=== PATIENT | male | born 1965 | race Caucasian/White ===

== ENCOUNTER → 2017-06-13 | Emergency (ER) | payer MEDICARE, MEDICAID ==
[~2017-06-13] VITALS: Ht 165.1 cm; Wt 47.6 kg
[~2017-06-13] MED LIST: DIL50T PO; DOCU100C40 PO; FLUO20CA22 PO; LIDOcaine Viscous 15ml cup PO ONE; LORazepam 1 MG tablet PO ONE; NICO-687 TD; OLANZapine 2.5MG tablet PO SCH; TAMS0.4C32 PO; TRAZ-143 PO; acetaminophen 325mg tablet PO ONE; diphenhydrAMINE 25mg capsule PO ONE; mag hydrox/Alum hydrox/simeth 30ml oral suspension PO ONE; normal saline 1000ML IV soln IVB ONE; normal saline 1000ml 1,000 ML IV ONE; ondansetron 4mg rapidly disintigrating tab PO ONE; ondansetron/PF 4mg/2ml inj IV ONE; proCHLORperazine 10mg tablet PO ONE
[2017-06-13 15:08] LABS: CLARITY,URINE CLOUDY (Clear); COLOR,URINE YELLOW (Yellow); GLUCOSE, URINE NEGATIVE (Neg); KETONES,URINE >=80 mg/dl (Neg); LEUKOCYTE ESTERASE ,URINE NEGATIVE (Neg); NITRITES, URINE NEGATIVE (Neg); OCCULT BLOOD,URINE TRACE-INTACT (Neg); PROTEIN,URINE 30 mg/dl (Neg); UA COLLECTION TYPE CLN CATCH MIDSTREAM; UROBILINOGEN,URINE 0.2 E.U/dL (0.2-1.0)
[2017-06-13 15:18] LABS: BASOPHILS % (AUTO) 0.1 % (0-1); EOSINOPHILS % (AUTO) 0.2 % (0-6); HEMATOCRIT 48.1 % (42.0-52.0); HEMOGLOBIN 16.4 g/dl (14.0-17.9); LYMPHOCYTES % (AUTO) 9.8 % (21-51); MEAN CORPUSCULAR HEMOGLOBIN 30.3 PG (27.0-31.0); MEAN PLATELET VOLUME 8.8 FL (7.4-10.4); MONOCYTES # (AUTO) 0.7 X10'3 (0-0.9); MONOCYTES % (AUTO) 6.8 % (2-12); NEUTROPHILS # (AUTO) 8.3 X10'3 (1.8-7.7); NEUTROPHILS % (AUTO) 83.1 % (42-75); PLATELET COUNT 286 X10'3 (140-440); RED BLOOD COUNT 5.41 X10'6 (4.70-6.10); WHITE BLOOD COUNT 9.9 X10'3 (4.5-11.0)
[2017-06-13 15:28] LABS: URINE AMPHETAMINE SCREEN NEGATIVE (Neg); URINE BARBITUATE SCREEN NEGATIVE (Neg); URINE BENZODIAZEPINES SCREEN NEGATIVE (Neg); URINE CANNABINOID SCREEN POSITIVE (Neg); URINE COCAINE SCREEN NEGATIVE (Neg); URINE METHADONE SCREEN NEGATIVE (Neg); URINE OPIATE SCREEN NEGATIVE (Neg); URINE PHENCYCLIDINE SCREEN NEGATIVE (Neg)
[2017-06-13 15:31] LABS: HYALINE CASTS >30 /LPF (NEGATIVE); SQUAMOUS EPITHELIAL CELL,UR FEW /LPF (FEW)
[2017-06-13 15:32] LABS: BACTERIA,URINE FEW /HPF (Neg); MUCUS STRANDS MANY /LPF (Neg); RBC,URINE 0-2 /HPF (0-2); TRANSITIONAL EPI CELLS,URINE FEW /HPF; WBC,URINE 0-4 /HPF (0-4)
[2017-06-13 15:42] LABS: ALANINE AMINOTRANSFERASE 25 U/L (12-78); ALBUMIN 4.3 G/DL (3.4-5.0); ALBUMIN/GLOBULIN RATIO 1.1 (1.1-1.5); ALKALINE PHOSPHATASE 80 IU/L (46-116); ANION GAP 15 (8-16); ASPARTATE AMINO TRANSFERASE 26 U/L (10-37); BILIRUBIN,TOTAL 0.7 MG/DL (0.1-1.0); BLOOD UREA NITROGEN 20 MG/DL (7-18); CALCIUM 9.7 MG/DL (8.5-10.1); CHLORIDE 97 MMOL/L (99-107); CREATININE 0.87 MG/DL (0.60-1.10); ETHANOL < 0.010 GM/DL (0.0-0.010); GLUCOSE 114 MG/DL (70-104); POTASSIUM 4.2 MMOL/L (3.5-5.1); SODIUM 139 MMOL/L (135-145); TOTAL CARBON DIOXIDE 26.6 MMOL/L (24-32); TOTAL PROTEIN 8.2 G/DL (6.4-8.2); eGFR > 90 ML/MIN
[2017-06-13] MEDS: LORazepam 1 MG tablet PO PRN (20:12)
[2017-06-13] MEDS: olanzapine 10mg tablet PO SCH ×2 (20:16→20:17)
[2017-06-13] MEDS: normal saline 1000ml 1,000 ML IVB SCH (23:27)
[2017-06-14] MEDS: normal saline 1000ml 1,000 ML IVB SCH ×3 (00:52→02:25)
[2017-06-14] MEDS: LORazepam 1 MG tablet PO PRN (17:39)
[2017-06-14] MEDS: olanzapine 10mg tablet PO SCH (21:33)
[2017-06-15] MEDS: acetaminophen 325mg tablet PO PRN ×2 (09:04→18:41)
[2017-06-15] MEDS: LORazepam 1 MG tablet PO PRN (18:41)
[2017-06-15] MEDS: olanzapine 10mg tablet PO SCH (20:45)
[2017-06-16] MEDS: LORazepam 1 MG tablet PO PRN (07:37)
[2017-06-16] MEDS: acetaminophen 325mg tablet PO PRN (07:38)
[2017-06-16 17:33] VITALS: BP 120/67
== END ==
LOC: ER 14:09
DX: F32.9 Major depressive disorder, single episode, unspecified (principal); F41.9 Anxiety disorder, unspecified; R45.851 Suicidal ideations; F17.200 Nicotine dependence, unspecified, uncomplicated; F12.10 Cannabis abuse, uncomplicated; Z88.0 Allergy status to penicillin; Z79.899 Other long term (current) drug therapy
CPT/HCPCS: 36415; 80053; 80305; 80320; 81001; 84443; 85025; 93005; 99285; J2405; J3490; J7030; Q0164

== ENCOUNTER 2017-06-16 17:30 | Inpatient (IN) | payer MEDICARE, MEDICAID ==
[~2017-06-16] VITALS: Ht 165.1 cm; Wt 52.2 kg
[~2017-06-16 17:30] MED LIST changes: -LIDOcaine Viscous 15ml cup PO ONE; -LORazepam 1 MG tablet PO ONE; -OLANZapine 2.5MG tablet PO SCH; -acetaminophen 325mg tablet PO ONE; -diphenhydrAMINE 25mg capsule PO ONE; -mag hydrox/Alum hydrox/simeth 30ml oral suspension PO ONE; -normal saline 1000ML IV soln IVB ONE; -normal saline 1000ml 1,000 ML IV ONE; -ondansetron 4mg rapidly disintigrating tab PO ONE; -ondansetron/PF 4mg/2ml inj IV ONE; -proCHLORperazine 10mg tablet PO ONE
[2017-06-16 20:43] VITALS: BP 135/84
[2017-06-16] MEDS ORDERED: acetaminophen 325mg tablet PO PRN (21:10)
[2017-06-16] MEDS ORDERED: traZODone 50mg tablet PO ONE (21:40)
[2017-06-16] MEDS ORDERED: phenytoin 50mg chewable tablet PO ONE (21:40)
[2017-06-17 07:08] VITALS: BP 119/83
[2017-06-17] MEDS: phenytoin 50mg chewable tablet PO SCH ×3 (07:43→20:11)
[2017-06-17] MEDS ORDERED: tamsulosin 0.4mg capsule PO SCH (08:00)
[2017-06-17] MEDS: nicotine 21mg patch - 24 hr TD SCH (08:20)
[2017-06-17] MEDS: FLUoxetine 20mg capsule PO SCH (08:20)
[2017-06-17] MEDS ORDERED: pantoprazole 40mg Tablet.DR PO ONE (08:55)
[2017-06-17] MEDS: acetaminophen 325mg tablet PO PRN (12:05)
[2017-06-17 19:01] VITALS: BP 137/89
[2017-06-17] MEDS: gabapentin 300mg capsule PO SCH (20:10)
[2017-06-17] MEDS: traZODone 50mg tablet PO SCH (20:12)
[2017-06-17] MEDS ORDERED: OLANZapine 2.5MG tablet PO SCH (21:00)
[2017-06-18] MEDS: phenytoin 50mg chewable tablet PO SCH ×3 (07:17→20:52)
[2017-06-18] MEDS: pantoprazole 40mg Tablet.DR PO SCH (07:50)
[2017-06-18] MEDS: FLUoxetine 20mg capsule PO SCH (07:50)
[2017-06-18] MEDS: gabapentin 300mg capsule PO SCH ×3 (07:50→20:52)
[2017-06-18 08:00] VITALS: BP 117/78
[2017-06-18] MEDS: nicotine 21mg patch - 24 hr TD SCH (11:47)
[2017-06-18] MEDS ORDERED: docusate sod 100mg capsule PO PRN (16:45)
[2017-06-18 19:21] LABS: BASOPHILS % (AUTO) 0.5 % (0-1); EOSINOPHILS # (AUTO) 0.5 X10'3 (0-0.9); EOSINOPHILS % (AUTO) 6.2 % (0-6); HEMATOCRIT 43.5 % (42.0-52.0); HEMOGLOBIN 14.9 g/dl (14.0-17.9); LYMPHOCYTES # (AUTO) 2.2 X10'3 (1.1-4.8); MEAN CORPUSCULAR HEMOGLOBIN 30.5 PG (27.0-31.0); MEAN CORPUSCULAR HGB CONC 34.2 % (33.0-36.5); MEAN CORPUSCULAR VOLUME 89.2 FL (78-98); MEAN PLATELET VOLUME 8.7 FL (7.4-10.4); MONOCYTES # (AUTO) 0.6 X10'3 (0-0.9); MONOCYTES % (AUTO) 6.9 % (2-12); NEUTROPHILS # (AUTO) 4.8 X10'3 (1.8-7.7); NEUTROPHILS % (AUTO) 59.4 % (42-75); PLATELET COUNT 304 X10'3 (140-440); RED BLOOD COUNT 4.87 X10'6 (4.70-6.10); WHITE BLOOD COUNT 8.1 X10'3 (4.5-11.0)
[2017-06-18 19:28] LABS: ALANINE AMINOTRANSFERASE 21 U/L (12-78); ALBUMIN 3.6 G/DL (3.4-5.0); ALKALINE PHOSPHATASE 60 IU/L (46-116); ANION GAP 10 (8-16); ASPARTATE AMINO TRANSFERASE 16 U/L (10-37); BILIRUBIN,TOTAL 0.2 MG/DL (0.1-1.0); BLOOD UREA NITROGEN 16 MG/DL (7-18); BUN/CREATININE RATIO 19.3 (5.4-32.0); CALCIUM 9.5 MG/DL (8.5-10.1); CHLORIDE 102 MMOL/L (99-107); CREATININE 0.83 MG/DL (0.60-1.10); GLUCOSE 131 MG/DL (70-104); POTASSIUM 4.6 MMOL/L (3.5-5.1); SODIUM 139 MMOL/L (135-145); TOTAL CARBON DIOXIDE 27.4 MMOL/L (24-32); TOTAL PROTEIN 7.2 G/DL (6.4-8.2); eGFR > 90 ML/MIN
[2017-06-18 19:36] VITALS: BP 163/90
[2017-06-18] MEDS: traZODone 50mg tablet PO SCH (20:53)
[2017-06-18] MEDS ORDERED: OLANZapine 2.5MG tablet PO SCH (21:00)
[2017-06-19] MEDS: phenytoin 50mg chewable tablet PO SCH ×4 (07:00→20:20)
[2017-06-19] MEDS: pantoprazole 40mg Tablet.DR PO SCH (07:30)
[2017-06-19 08:00] VITALS: BP 128/80
[2017-06-19] MEDS: gabapentin 300mg capsule PO SCH ×3 (08:00→20:20)
[2017-06-19] MEDS: nicotine 21mg patch - 24 hr TD SCH (08:00)
[2017-06-19] MEDS: FLUoxetine 20mg capsule PO SCH (08:00)
[2017-06-19] MEDS: mag hydrox/Alum hydrox/simeth 30ml oral suspension PO PRN (16:56)
[2017-06-19 19:26] VITALS: BP 124/87
[2017-06-19] MEDS ORDERED: traZODone 50mg tablet PO SCH (20:00)
[2017-06-19] MEDS: OLANZapine 2.5MG tablet PO SCH (20:16)
[2017-06-20] MEDS: pantoprazole 40mg Tablet.DR PO SCH (07:18)
[2017-06-20] MEDS: phenytoin 50mg chewable tablet PO SCH ×3 (07:19→20:41)
[2017-06-20] MEDS ORDERED: PALIPERIDONE 3 MG TAB.ER.24 PO SCH (08:00)
[2017-06-20] MEDS: FLUoxetine 20mg capsule PO SCH (08:12)
[2017-06-20] MEDS: gabapentin 300mg capsule PO SCH ×3 (08:12→20:41)
[2017-06-20] MEDS: nicotine 21mg patch - 24 hr TD SCH (08:13)
[2017-06-20 08:14] VITALS: BP 112/77
[2017-06-20 19:31] VITALS: BP 132/82
[2017-06-20] MEDS: OLANZapine 2.5MG tablet PO SCH (20:41)
[2017-06-20] MEDS: traZODone 50mg tablet PO SCH (20:41)
[2017-06-21] MEDS: pantoprazole 40mg Tablet.DR PO SCH (07:17)
[2017-06-21] MEDS: phenytoin 50mg chewable tablet PO SCH ×3 (07:29→20:29)
[2017-06-21] MEDS ORDERED: PALIPERIDONE 3 MG TAB.ER.24 PO SCH (08:00)
[2017-06-21] MEDS: gabapentin 300mg capsule PO SCH ×3 (08:10→20:29)
[2017-06-21] MEDS: FLUoxetine 20mg capsule PO SCH (08:11)
[2017-06-21] MEDS: nicotine 21mg patch - 24 hr TD SCH (08:11)
[2017-06-21 08:57] VITALS: BP 109/79
[2017-06-21] MEDS: acetaminophen 325mg tablet PO PRN (12:32)
[2017-06-21] MEDS: magnesium hydroxide 30ml (MOM) UD suspension PO PRN (14:21)
[2017-06-21 20:00] VITALS: BP 116/79
[2017-06-21] MEDS: OLANZapine 2.5MG tablet PO SCH (20:29)
[2017-06-21] MEDS: traZODone 50mg tablet PO SCH (20:29)
[2017-06-22] MEDS: phenytoin 50mg chewable tablet PO SCH ×3 (07:08→20:42)
[2017-06-22] MEDS: pantoprazole 40mg Tablet.DR PO SCH (07:41)
[2017-06-22] MEDS: FLUoxetine 20mg capsule PO SCH (07:42)
[2017-06-22] MEDS: gabapentin 300mg capsule PO SCH ×3 (07:42→20:42)
[2017-06-22] MEDS: PALIPERIDONE 3 MG TAB.ER.24 PO SCH (07:42)
[2017-06-22] MEDS: nicotine 21mg patch - 24 hr TD SCH (07:49)
[2017-06-22 07:50] VITALS: BP 125/89
[2017-06-22] MEDS: acetaminophen 325mg tablet PO PRN (17:51)
[2017-06-22 19:00] VITALS: BP 123/88
[2017-06-22] MEDS: magnesium hydroxide 30ml (MOM) UD suspension PO PRN (20:41)
[2017-06-22] MEDS: OLANZapine 2.5MG tablet PO SCH (20:42)
[2017-06-22] MEDS: traZODone 50mg tablet PO SCH (20:42)
[2017-06-23 08:00] VITALS: BP 128/79
[2017-06-23] MEDS: phenytoin 50mg chewable tablet PO SCH ×3 (08:03→20:50)
[2017-06-23] MEDS: gabapentin 300mg capsule PO SCH ×3 (08:26→20:49)
[2017-06-23] MEDS: pantoprazole 40mg Tablet.DR PO SCH (08:26)
[2017-06-23] MEDS: FLUoxetine 20mg capsule PO SCH (08:27)
[2017-06-23] MEDS: PALIPERIDONE 3 MG TAB.ER.24 PO SCH (08:27)
[2017-06-23] MEDS: nicotine 21mg patch - 24 hr TD SCH (08:30)
[2017-06-23] MEDS: acetaminophen 325mg tablet PO PRN (11:10)
[2017-06-23] MEDS: magnesium hydroxide 30ml (MOM) UD suspension PO PRN (11:49)
[2017-06-23 19:17] VITALS: BP 123/86
[2017-06-23] MEDS: benztropine 1mg tablet PO SCH (20:49)
[2017-06-23] MEDS: traZODone 50mg tablet PO SCH (20:49)
[2017-06-24] MEDS: phenytoin 50mg chewable tablet PO SCH ×3 (07:52→20:13)
[2017-06-24] MEDS: benztropine 1mg tablet PO SCH ×2 (07:53→20:14)
[2017-06-24] MEDS: gabapentin 300mg capsule PO SCH ×3 (07:53→20:13)
[2017-06-24] MEDS: FLUoxetine 20mg capsule PO SCH (07:53)
[2017-06-24] MEDS: PALIPERIDONE 3 MG TAB.ER.24 PO SCH (07:53)
[2017-06-24] MEDS: pantoprazole 40mg Tablet.DR PO SCH (07:53)
[2017-06-24] MEDS: nicotine 21mg patch - 24 hr TD SCH (07:54)
[2017-06-24 08:00] VITALS: BP 104/66
[2017-06-24] MEDS ORDERED: paliperidone palmitate inj 234 MG/1.5 ML SYRINGE IM ONE (08:00)
[2017-06-24] MEDS: mag hydrox/Alum hydrox/simeth 30ml oral suspension PO PRN (09:17)
[2017-06-24] MEDS ORDERED: bisacodyl 5mg tablet.DR PO PRN (11:05)
[2017-06-24 19:01] VITALS: BP_SYST 123; BP_SYST 126; BP_DIAS 79; BP_DIAS 86
[2017-06-24] MEDS: magnesium hydroxide 30ml (MOM) UD suspension PO PRN (20:10)
[2017-06-24] MEDS: docusate sod 100mg capsule PO SCH (20:13)
[2017-06-24] MEDS: mirtazapine 15mg tablet PO SCH (20:14)
[2017-06-25] MEDS: pantoprazole 40mg Tablet.DR PO SCH (07:36)
[2017-06-25] MEDS: phenytoin 50mg chewable tablet PO SCH ×3 (07:36→20:14)
[2017-06-25 08:00] VITALS: BP 112/85
[2017-06-25] MEDS: docusate sod 100mg capsule PO SCH ×2 (08:14→20:15)
[2017-06-25] MEDS: nicotine 21mg patch - 24 hr TD SCH (08:14)
[2017-06-25] MEDS: PALIPERIDONE 3 MG TAB.ER.24 PO SCH (08:14)
[2017-06-25] MEDS: FLUoxetine 20mg capsule PO SCH (08:14)
[2017-06-25] MEDS: gabapentin 300mg capsule PO SCH ×3 (08:14→20:15)
[2017-06-25] MEDS: benztropine 1mg tablet PO SCH ×2 (08:14→20:15)
[2017-06-25] MEDS: acetaminophen 325mg tablet PO PRN (19:44)
[2017-06-25 20:00] VITALS: BP 145/85
[2017-06-25] MEDS: psyllium seed 3.4 gm packet PO SCH (20:14)
[2017-06-25] MEDS: mirtazapine 15mg tablet PO SCH (20:15)
[2017-06-26] MEDS: pantoprazole 40mg Tablet.DR PO SCH (07:21)
[2017-06-26] MEDS: phenytoin 50mg chewable tablet PO SCH ×3 (07:21→20:17)
[2017-06-26 08:00] VITALS: BP 133/73
[2017-06-26] MEDS: PALIPERIDONE 3 MG TAB.ER.24 PO SCH (08:07)
[2017-06-26] MEDS: gabapentin 300mg capsule PO SCH ×3 (08:07→20:17)
[2017-06-26] MEDS: FLUoxetine 20mg capsule PO SCH (08:07)
[2017-06-26] MEDS: benztropine 1mg tablet PO SCH ×2 (08:07→20:16)
[2017-06-26] MEDS: docusate sod 100mg capsule PO SCH ×2 (08:08→20:16)
[2017-06-26] MEDS: nicotine 21mg patch - 24 hr TD SCH (08:09)
[2017-06-26] MEDS ORDERED: simethicone 125mg capsule PO PRN (09:05)
[2017-06-26] MEDS: acetaminophen 325mg tablet PO PRN (16:19)
[2017-06-26] MEDS: psyllium seed 3.4 gm packet PO SCH (20:16)
[2017-06-26] MEDS: mirtazapine 15mg tablet PO SCH (20:16)
[2017-06-26 20:21] VITALS: BP 117/80
[2017-06-27] MEDS: pantoprazole 40mg Tablet.DR PO SCH (07:19)
[2017-06-27] MEDS: phenytoin 50mg chewable tablet PO SCH ×3 (07:19→20:32)
[2017-06-27 07:58] VITALS: BP 119/77
[2017-06-27] MEDS: gabapentin 300mg capsule PO SCH ×3 (08:30→20:32)
[2017-06-27] MEDS: FLUoxetine 20mg capsule PO SCH (08:30)
[2017-06-27] MEDS: benztropine 1mg tablet PO SCH ×2 (08:30→20:32)
[2017-06-27] MEDS: PALIPERIDONE 3 MG TAB.ER.24 PO SCH (08:30)
[2017-06-27] MEDS: docusate sod 100mg capsule PO SCH ×2 (08:30→20:32)
[2017-06-27] MEDS: nicotine 21mg patch - 24 hr TD SCH (08:31)
[2017-06-27] MEDS: acetaminophen 325mg tablet PO PRN ×2 (11:18→17:00)
[2017-06-27 19:28] VITALS: BP 131/86
[2017-06-27] MEDS: mirtazapine 15mg tablet PO SCH (20:32)
[2017-06-27] MEDS: psyllium seed 3.4 gm packet PO SCH (20:32)
[2017-06-28] MEDS: benztropine 1mg tablet PO SCH (07:42)
[2017-06-28] MEDS: phenytoin 50mg chewable tablet PO SCH ×3 (07:42→20:10)
[2017-06-28] MEDS: gabapentin 300mg capsule PO SCH ×3 (07:43→20:10)
[2017-06-28] MEDS: docusate sod 100mg capsule PO SCH ×2 (07:43→20:10)
[2017-06-28] MEDS: PALIPERIDONE 3 MG TAB.ER.24 PO SCH (07:43)
[2017-06-28] MEDS: pantoprazole 40mg Tablet.DR PO SCH (07:44)
[2017-06-28] MEDS: FLUoxetine 20mg capsule PO SCH (07:44)
[2017-06-28] MEDS: nicotine 21mg patch - 24 hr TD SCH (07:48)
[2017-06-28 08:23] VITALS: BP 125/81
[2017-06-28] MEDS: acetaminophen 325mg tablet PO PRN (12:55)
[2017-06-28 19:16] VITALS: BP 137/86
[2017-06-28] MEDS: mirtazapine 15mg tablet PO SCH (20:10)
[2017-06-28] MEDS: psyllium seed 3.4 gm packet PO SCH (20:10)
[2017-06-29] MEDS: phenytoin 50mg chewable tablet PO SCH ×3 (07:32→20:10)
[2017-06-29] MEDS: pantoprazole 40mg Tablet.DR PO SCH (07:32)
[2017-06-29 08:00] VITALS: BP 119/80
[2017-06-29] MEDS ORDERED: paliperidone palmitate 156 mg/ml inj.**IM only IM ONE (08:00)
[2017-06-29] MEDS: gabapentin 300mg capsule PO SCH ×3 (08:27→20:09)
[2017-06-29] MEDS: PALIPERIDONE 3 MG TAB.ER.24 PO SCH (08:27)
[2017-06-29] MEDS: docusate sod 100mg capsule PO SCH ×2 (08:28→20:09)
[2017-06-29] MEDS: FLUoxetine 20mg capsule PO SCH (08:28)
[2017-06-29] MEDS: nicotine 21mg patch - 24 hr TD SCH (09:49)
[2017-06-29] MEDS: acetaminophen 325mg tablet PO PRN (11:29)
[2017-06-29] MEDS: magnesium hydroxide 30ml (MOM) UD suspension PO PRN (12:42)
[2017-06-29 19:11] VITALS: BP 129/86
[2017-06-29] MEDS: psyllium seed 3.4 gm packet PO SCH (20:09)
[2017-06-29] MEDS: mirtazapine 15mg tablet PO SCH (20:09)
[2017-06-29] MEDS: hydrOXYzine 25 MG tablet PO PRN (20:10)
[2017-06-30] MEDS: phenytoin 50mg chewable tablet PO SCH ×3 (07:05→21:46)
[2017-06-30] MEDS: pantoprazole 40mg Tablet.DR PO SCH (07:07)
[2017-06-30] MEDS: acetaminophen 325mg tablet PO PRN ×2 (07:07→17:15)
[2017-06-30] MEDS: gabapentin 300mg capsule PO SCH ×4 (08:15→22:17)
[2017-06-30] MEDS: FLUoxetine 20mg capsule PO SCH (08:16)
[2017-06-30] MEDS: docusate sod 100mg capsule PO SCH ×2 (08:16→21:46)
[2017-06-30] MEDS: PALIPERIDONE 3 MG TAB.ER.24 PO SCH (08:16)
[2017-06-30] MEDS: nicotine 21mg patch - 24 hr TD SCH (08:18)
[2017-06-30 08:37] VITALS: BP 113/75
[2017-06-30] MEDS: hydrOXYzine 25 MG tablet PO PRN (17:14)
[2017-06-30 19:07] VITALS: BP 117/79
[2017-06-30] MEDS: mirtazapine 15mg tablet PO SCH (21:45)
[2017-06-30] MEDS: psyllium seed 3.4 gm packet PO SCH (21:47)
[2017-07-01] MEDS: pantoprazole 40mg Tablet.DR PO SCH (07:32)
[2017-07-01] MEDS: phenytoin 50mg chewable tablet PO SCH ×3 (07:32→21:05)
[2017-07-01] MEDS: acetaminophen 325mg tablet PO PRN (07:55)
[2017-07-01 08:00] VITALS: BP 116/71
[2017-07-01] MEDS ORDERED: gabapentin 300mg capsule PO ONE (08:15)
[2017-07-01] MEDS: PALIPERIDONE 3 MG TAB.ER.24 PO SCH (08:51)
[2017-07-01] MEDS: FLUoxetine 20mg capsule PO SCH (08:51)
[2017-07-01] MEDS: docusate sod 100mg capsule PO SCH ×2 (08:51→21:07)
[2017-07-01] MEDS: nicotine 21mg patch - 24 hr TD SCH (08:52)
[2017-07-01] MEDS: gabapentin 300mg capsule PO SCH ×2 (13:25→21:10)
[2017-07-01 19:13] VITALS: BP 131/80
[2017-07-01] MEDS: mirtazapine 15mg tablet PO SCH ×2 (21:00→21:06)
[2017-07-01] MEDS ORDERED: polyethylene glycol 3350 17gm powd pack PO SCH (21:00)
[2017-07-01] MEDS: psyllium seed 3.4 gm packet PO SCH (21:06)
[2017-07-02] MEDS: pantoprazole 40mg Tablet.DR PO SCH (07:35)
[2017-07-02] MEDS: phenytoin 50mg chewable tablet PO SCH ×2 (07:35→11:59)
[2017-07-02] MEDS: gabapentin 300mg capsule PO SCH ×2 (07:54→13:01)
[2017-07-02] MEDS: FLUoxetine 20mg capsule PO SCH (07:54)
[2017-07-02] MEDS: docusate sod 100mg capsule PO SCH (07:54)
[2017-07-02] MEDS: nicotine 21mg patch - 24 hr TD SCH (07:55)
[2017-07-02 08:00] VITALS: BP 108/71
[2017-07-02] MEDS: acetaminophen 325mg tablet PO PRN (12:05)
[2017-07-02] MEDS ORDERED: HYDR-3686 PO (12:56)
[2017-07-02] MEDS ORDERED: FLUO20CA22 PO (12:56)
[2017-07-02] MEDS ORDERED: PALI117D IM (12:56)
[2017-07-02] MEDS ORDERED: NICO-731 TOP (12:56)
[2017-07-02] MEDS ORDERED: TAMS0.4C32 PO (12:56)
[2017-07-02] MEDS ORDERED: MIRT15TA8 PO (12:56)
[2017-07-02] MEDS ORDERED: COL100C PO (12:56)
[2017-07-02] MEDS ORDERED: DIL50T PO (12:56)
[2017-07-02] MEDS ORDERED: GABA300C PO (12:56)
[2017-07-02] MEDS ORDERED: PANT40TA4 PO (12:56)
== END 2017-07-02 15:00 | disposition home or self-care (01) | DRG 885 ==
LOC: ADULT MH 17:30
PROVIDERS: ADMIT Psychiatry & Neurology Psychiatry; ATTEND Hospitalist
DX: F31.64 Bipolar disorder, current episode mixed, severe, with psychotic features (principal); R45.851 Suicidal ideations; G40.909 Epilepsy, unspecified, not intractable, without status epilepticus; F17.210 Nicotine dependence, cigarettes, uncomplicated; F41.9 Anxiety disorder, unspecified; K59.00 Constipation, unspecified; R32 Unspecified urinary incontinence; G47.00 Insomnia, unspecified; N40.0 Benign prostatic hyperplasia without lower urinary tract symptoms; G24.9 Dystonia, unspecified; Z82.49 Family history of ischemic heart disease and other diseases of the circulatory system; Z82.41 Family history of sudden cardiac death; Z82.3 Family history of stroke; Z83.3 Family history of diabetes mellitus; Z82.5 Family history of asthma and other chronic lower respiratory diseases; Z79.899 Other long term (current) drug therapy; Z88.0 Allergy status to penicillin; Z90.49 Acquired absence of other specified parts of digestive tract
CPT/HCPCS: 12001; 36415; 76700; 80053; 80185; 85025; 87070; 96372; 96374; 99285; A6213; Q0177

== ENCOUNTER 2017-09-16 04:29 | Emergency (ER) | payer MEDICARE, MEDICAID ==
[~2017-09-16] VITALS: Ht 165.1 cm; Wt 49.8 kg
[~2017-09-16 04:29] MED LIST changes: -DOCU100C40 PO; -FLUO20CA22 PO; -NICO-687 TD; +NICO-731 TOP; -TAMS0.4C32 PO; -TRAZ-143 PO
[2017-09-16 04:35] VITALS: BP 152/101
[2017-09-16] MEDS ORDERED: CEPH-572 PO (05:46)
[2017-09-16] MEDS ORDERED: bacitracin 15gm ointment TP ONE (05:50)
== END 2017-09-16 05:56 | disposition home or self-care (01) ==
LOC: ER 04:30
DX: S06.0X0A Concussion without loss of consciousness, initial encounter (principal); S01.21XA Laceration without foreign body of nose, initial encounter; S80.212A Abrasion, left knee, initial encounter; F17.200 Nicotine dependence, unspecified, uncomplicated; F12.90 Cannabis use, unspecified, uncomplicated; Z88.0 Allergy status to penicillin; Z79.899 Other long term (current) drug therapy; W01.0XXA Fall on same level from slipping, tripping and stumbling without subsequent striking against object, initial encounter; Y93.89 Activity, other specified; Y92.89 Other specified places as the place of occurrence of the external cause; Y99.8 Other external cause status
CPT/HCPCS: 12013; 99284

== ENCOUNTER 2018-06-06 11:49 | Emergency (ER) | payer MEDICARE, MEDICAID ==
[~2018-06-06] VITALS: Ht 165.1 cm; Wt 53.0 kg
[2018-06-06 12:13] LABS: BASOPHILS # (AUTO) 0.1 X10'3 (0-0.2); BASOPHILS % (AUTO) 0.8 % (0-1); EOSINOPHILS # (AUTO) 0.5 X10'3 (0-0.9); EOSINOPHILS % (AUTO) 5.5 % (0-6); HEMOGLOBIN 14.6 g/dl (14.0-17.9); LYMPHOCYTES # (AUTO) 1.8 X10'3 (1.1-4.8); LYMPHOCYTES % (AUTO) 21.3 % (21-51); MEAN CORPUSCULAR HEMOGLOBIN 29.9 PG (27.0-31.0); MEAN CORPUSCULAR HGB CONC 33.1 g/dL (33.0-36.5); MEAN CORPUSCULAR VOLUME 90.4 FL (78-98); MEAN PLATELET VOLUME 7.8 FL (7.4-10.4); MONOCYTES # (AUTO) 0.7 X10'3 (0-0.9); MONOCYTES % (AUTO) 8.8 % (2-12); NEUTROPHILS # (AUTO) 5.4 X10'3 (1.8-7.7); NEUTROPHILS % (AUTO) 63.6 % (42-75); PLATELET COUNT 277 X10'3 (140-440); RED BLOOD COUNT 4.87 X10'6 (4.70-6.10); RED CELL DISTRIBUTION WIDTH 13.9 % (11.5-14.5); WHITE BLOOD COUNT 8.5 X10'3 (4.5-11.0)
[2018-06-06 12:29] LABS: ALANINE AMINOTRANSFERASE 18 U/L (12-78); ALBUMIN 3.6 G/DL (3.4-5.0); ALBUMIN/GLOBULIN RATIO 1.1 (1.1-1.5); ALKALINE PHOSPHATASE 69 IU/L (46-116); ANION GAP 7 (8-16); ASPARTATE AMINO TRANSFERASE 16 U/L (10-37); BILIRUBIN,TOTAL 0.2 MG/DL (0.1-1.0); BLOOD UREA NITROGEN 9 MG/DL (7-18); BUN/CREATININE RATIO 12.7 (5.4-32.0); CALCIUM 9.2 MG/DL (8.5-10.1); CHLORIDE 102 MMOL/L (99-107); CREATININE 0.71 MG/DL (0.60-1.10); GLUCOSE 79 MG/DL (70-104); POTASSIUM 4.5 MMOL/L (3.5-5.1); SODIUM 139 MMOL/L (135-145); TOTAL PROTEIN 6.8 G/DL (6.4-8.2); eGFR > 90 ML/MIN
[2018-06-06 12:37] LABS: MAGNESIUM 1.9 MG/DL (1.5-2.4)
[2018-06-06 13:24] VITALS: BP 143/78
== END 2018-06-06 13:26 | disposition home or self-care (01) ==
LOC: ER 11:49
DX: M54.2 Cervicalgia (principal); M25.512 Pain in left shoulder; R06.02 Shortness of breath; R05 Cough; F17.200 Nicotine dependence, unspecified, uncomplicated; F12.90 Cannabis use, unspecified, uncomplicated; Z88.0 Allergy status to penicillin
CPT/HCPCS: 36415; 71045; 80053; 83735; 83880; 84484; 85025; 93005; 99284

== ENCOUNTER 2019-05-02 07:25 | Emergency (ER) | payer MEDICARE, MEDICAID ==
[~2019-05-02] VITALS: Ht 165.1 cm; Wt 52.0 kg
[2019-05-02] MEDS ORDERED: ibuprofen tablet 400 MG TABLET PO ONE (08:05)
[2019-05-02 08:10] LABS: BASOPHILS # (AUTO) 0.1 X10'3 (0-0.2); EOSINOPHILS # (AUTO) 0.4 X10'3 (0-0.9); EOSINOPHILS % (AUTO) 5.6 % (0-6); HEMATOCRIT 42.9 % (42.0-52.0); HEMOGLOBIN 14.5 g/dl (14.0-17.9); LYMPHOCYTES # (AUTO) 1.6 X10'3 (1.1-4.8); LYMPHOCYTES % (AUTO) 24.9 % (21-51); MEAN CORPUSCULAR HEMOGLOBIN 30.4 PG (27.0-31.0); MEAN CORPUSCULAR HGB CONC 33.8 g/dL (33.0-36.5); MEAN CORPUSCULAR VOLUME 89.9 FL (78-98); MEAN PLATELET VOLUME 7.7 FL (7.4-10.4); MONOCYTES # (AUTO) 0.5 X10'3 (0-0.9); MONOCYTES % (AUTO) 8.1 % (2-12); NEUTROPHILS # (AUTO) 3.9 X10'3 (1.8-7.7); NEUTROPHILS % (AUTO) 60.4 % (42-75); PLATELET COUNT 284 X10'3 (140-440); RED BLOOD COUNT 4.77 X10'6 (4.70-6.10); RED CELL DISTRIBUTION WIDTH 14.3 % (11.5-14.5); WHITE BLOOD COUNT 6.4 X10'3 (4.5-11.0)
[2019-05-02 08:27] LABS: ALANINE AMINOTRANSFERASE 20 U/L (12-78); ALBUMIN 3.3 G/DL (3.4-5.0); ALKALINE PHOSPHATASE 68 IU/L (46-116); ANION GAP 3 (8-16); ASPARTATE AMINO TRANSFERASE 17 U/L (10-37); BILIRUBIN,TOTAL 0.2 MG/DL (0.1-1.0); BLOOD UREA NITROGEN 11 MG/DL (7-18); BUN/CREATININE RATIO 17.7 (5.4-32.0); CHLORIDE 108 MMOL/L (99-107); CREATININE 0.62 MG/DL (0.60-1.10); GLUCOSE 104 MG/DL (70-104); POTASSIUM 4.5 MMOL/L (3.5-5.1); SODIUM 143 MMOL/L (135-145); TOTAL CARBON DIOXIDE 32.2 MMOL/L (24-32); TOTAL PROTEIN 6.5 G/DL (6.4-8.2); eGFR > 90 ML/MIN
[2019-05-02 09:01] VITALS: BP 155/91
== END 2019-05-02 09:03 | disposition home or self-care (01) ==
LOC: ER 07:25
DX: R07.89 Other chest pain (principal); F41.9 Anxiety disorder, unspecified; F12.90 Cannabis use, unspecified, uncomplicated; Z86.69 Personal history of other diseases of the nervous system and sense organs; Z88.0 Allergy status to penicillin; Z79.899 Other long term (current) drug therapy
CPT/HCPCS: 36415; 71045; 80053; 84484; 85025; 93005; 99284

== ENCOUNTER 2020-10-20 12:17 | Emergency (ER) | payer MEDICARE, MEDICAID ==
[~2020-10-20] VITALS: Ht 165.1 cm; Wt 50.0 kg
[2020-10-20] MEDS ORDERED: normal saline 1000ML IV soln IVB ONE (12:25)
[2020-10-20] MEDS ORDERED: ondansetron/PF 4mg/2ml inj IV ONE (12:25)
[2020-10-20 12:41] VITALS: BP 101/66
[2020-10-20 13:04] LABS: BASOPHILS % (AUTO) 0.5 % (0-1); EOSINOPHILS # (AUTO) 0.2 X10'3 (0-0.9); EOSINOPHILS % (AUTO) 3.3 % (0-6); HEMATOCRIT 42.6 % (42.0-52.0); HEMOGLOBIN 14.1 g/dl (14.0-17.9); LYMPHOCYTES # (AUTO) 1.3 X10'3 (1.1-4.8); LYMPHOCYTES % (AUTO) 20.1 % (21-51); MEAN CORPUSCULAR HEMOGLOBIN 30.6 PG (27.0-31.0); MEAN CORPUSCULAR HGB CONC 33.2 g/dL (33.0-36.5); MEAN CORPUSCULAR VOLUME 92.3 FL (78-98); MEAN PLATELET VOLUME 8.7 FL (7.4-10.4); MONOCYTES # (AUTO) 0.4 X10'3 (0-0.9); MONOCYTES % (AUTO) 6.1 % (2-12); NEUTROPHILS # (AUTO) 4.6 X10'3 (1.8-7.7); PLATELET COUNT 244 X10'3 (140-440); RED BLOOD COUNT 4.62 X10'6 (4.70-6.10); RED CELL DISTRIBUTION WIDTH 14.1 % (11.5-14.5); WHITE BLOOD COUNT 6.5 X10'3 (4.5-11.0)
[2020-10-20 13:20] LABS: ALANINE AMINOTRANSFERASE 18 U/L (12-78); ALBUMIN 3.6 G/DL (3.4-5.0); ALBUMIN/GLOBULIN RATIO 1.2 (1.1-1.5); ALKALINE PHOSPHATASE 64 IU/L (46-116); ANION GAP 8 (8-16); ASPARTATE AMINO TRANSFERASE 18 U/L (10-37); BILIRUBIN,TOTAL 0.4 MG/DL (0.1-1.0); BLOOD UREA NITROGEN 15 MG/DL (7-18); BUN/CREATININE RATIO 17.4 (5.4-32.0); CALCIUM 8.9 MG/DL (8.5-10.1); CHLORIDE 104 MMOL/L (99-107); CREATININE 0.86 MG/DL (0.60-1.10); GLUCOSE 212 MG/DL (70-104); POTASSIUM 3.2 MMOL/L (3.5-5.1); SODIUM 140 MMOL/L (135-145); TOTAL CARBON DIOXIDE 27.6 MMOL/L (24-32); TOTAL PROTEIN 6.5 G/DL (6.4-8.2); eGFR > 90 ML/MIN
== END 2020-10-20 16:25 | disposition left against medical advice (07) ==
LOC: ER 12:17
DX: T67.1XXA Heat syncope, initial encounter (principal); Z79.899 Other long term (current) drug therapy; Z88.0 Allergy status to penicillin; Z59.0 Homelessness
CPT/HCPCS: 36415; 71045; 80053; 84484; 85025; 93005; 99285

== ENCOUNTER 2023-10-22 09:33 | Emergency (ER) | payer MEDICARE, MEDICAID ==
[~2023-10-22] VITALS: Ht 165.1 cm; Wt 49.0 kg
[2023-10-22 09:38] VITALS: TEMP 97.8
[2023-10-22 10:01] LABS: BASOPHILS # (AUTO) 0.1 X10'3 (0-0.2); EOSINOPHILS # (AUTO) 0.3 X10'3 (0-0.9); EOSINOPHILS % (AUTO) 3.4 % (0-6); HEMATOCRIT 46.3 % (42.0-52.0); HEMOGLOBIN 15.7 g/dl (14.0-17.9); LYMPHOCYTES # (AUTO) 1.6 X10'3 (1.1-4.8); LYMPHOCYTES % (AUTO) 20.4 % (21-51); MEAN CORPUSCULAR HEMOGLOBIN 31.9 PG (27.0-31.0); MEAN CORPUSCULAR HGB CONC 33.9 g/dL (33.0-36.5); MEAN CORPUSCULAR VOLUME 94.2 FL (78-98); MEAN PLATELET VOLUME 8.7 FL (7.4-10.4); MONOCYTES # (AUTO) 0.7 X10'3 (0-0.9); MONOCYTES % (AUTO) 9.5 % (2-12); NEUTROPHILS # (AUTO) 5.1 X10'3 (1.8-7.7); NEUTROPHILS % (AUTO) 65.7 % (42-75); PLATELET COUNT 257 X10'3 (140-440); RED BLOOD COUNT 4.91 X10'6 (4.70-6.10); RED CELL DISTRIBUTION WIDTH 15.8 % (11.5-14.5); WHITE BLOOD COUNT 7.7 X10'3 (4.5-11.0)
[2023-10-22 10:31] LABS: ALANINE AMINOTRANSFERASE 55 U/L (12-78); ALBUMIN 3.5 G/DL (3.4-5.0); ALKALINE PHOSPHATASE 70 IU/L (46-116); ANION GAP 12 (8-16); ASPARTATE AMINO TRANSFERASE 30 U/L (10-37); BILIRUBIN,TOTAL 0.5 MG/DL (0.1-1.0); BLOOD UREA NITROGEN 16 MG/DL (7-18); BUN/CREATININE RATIO 21.3 (10.0-20.0); CALCIUM 9.1 MG/DL (8.5-10.1); CHLORIDE 102 MMOL/L (99-107); CREATININE 0.75 MG/DL (0.60-1.10); GLUCOSE 95 MG/DL (70-104); POTASSIUM 3.8 MMOL/L (3.5-5.1); SODIUM 135 MMOL/L (135-145); TOTAL CARBON DIOXIDE 20.9 MMOL/L (24-32); TOTAL PROTEIN 7.1 G/DL (6.4-8.2); eCRCL 74 ML/MIN; eGFR > 90 ML/MIN
[2023-10-22 10:39] LABS: PRO BRAIN NATRIURETIC PEPTIDE 31 PG/ML (0-125)
[2023-10-22] MEDS: ketorolac trometh. 30mg/ml inj. IV ONE (11:54)
[2023-10-22 13:16] VITALS: BP 115/86; PULSE 94; RESP 17; O2SAT 97
== END 2023-10-22 13:19 | disposition home or self-care (01) ==
LOC: ER 09:35
DX: R07.89 Other chest pain (principal); F41.9 Anxiety disorder, unspecified; I25.10 Atherosclerotic heart disease of native coronary artery without angina pectoris; F12.90 Cannabis use, unspecified, uncomplicated; Z79.899 Other long term (current) drug therapy; Z88.0 Allergy status to penicillin
CPT/HCPCS: 36415; 71045; 80053; 83880; 84484; 85025; 93005; 96374; 99285; J1885